=== PATIENT | male | born 1980 | race Caucasian/White ===

== ENCOUNTER 2019-06-22 17:19 | Emergency (ER) | payer MEDICAID, SELFPAY ==
[2019-06-22 17:20] VITALS: BP 165/72; PULSE 80; RESP 16; TEMP 36.6; O2SAT 100; BMI 22.9
--- NOTE | 2019-06-22 17:39 | ED.VIS.DENTA ---
History of Present Illness Chief Complaint: Dental Informant: Patient Onset: Yesterday Context: Sudden Onset Timing: Continuous Quality: ache Location: left mandibular tooth Current Severity: Mild Maximum Severity: Mild Worsened by: Eating Relieved by: - - Nothing but has not tried any medications Associated Symptoms: Jaw Swelling, - - No fevers. No systemic symptoms. Narrative: Was eating hard pizza crust when 1 of his teeth crumbled/broke yesterday. This morning he has some swelling and feels it may be getting infected. - Past Medical History (1) Controlled type 1 diabetes mellitus with microalbuminuria, with long-term current use of insulin Status: Chronic Comment: Continues to do well. . No issues currently. No statin use. On lisinopril Past Medical History - Allergies and Home Meds Allergies/Adverse Reactions: Allergies cephalexin monohydrate [From Keflex] Allergy (Verified 04/12/18 08:25) Hives Primary Care Physician: Luis San MD [Primary Care Provider] - Lives: Alone Smoking Status: Current every day smoker Review of Systems General: Denies: Chills, Fever, Sweats Eyes: Denies: Visual changes - bilaterally, Diplopia ENT: Reports: - - Dental pain. Jaw swelling.. Denies: Bilateral ear pain Respiratory: Denies: Dyspnea, Cough Skin: Denies: Rash, Wounds Neurological: Denies: Headache, Weakness, Numbness Physical Exam Vital Signs/Narrative: Vital Signs Temp Pulse Resp BP Pulse Ox 06/22/19 17:20 98 F 80 16 165/72 H 100 Inital Vital Signs reviewed: Yes General: Well nourished, Well developed, - - Well-appearing, no acute distress Head: Normocephalic, Atraumatic ENT: Moist mucous membranes, No rhinorrhea, TM's clear Mouth/Throat: No focal abscess, No sublingual edema, Dentral fracture - Due to decay, tooth number 19; anterior portion of tooth is missing, pulp exposed. No bleeding., Focal dental decay, Focal gum swelling - Mild at base of affected tooth. Tender. No abscess.. Negative for: Gingivitis - No gingival bleeding Neck: Supple, No lymphadenopathy, - - No abscess visible or palpable Cardiovascular: Regular rate, Regular rhythm, No murmurs Respiratory: No distress, CTA bilaterally, Chest nontender Skin: Normal color, No rash, No Trauma Neurological: Alert, Oriented x3, Cranial nerves II-XII grossly intact, Normal Strength, Normal Sensation, Normal Gait Psychological: Normal affect, Normal Mood Diagnostic/Tx/Re-eval - Medical Decision Making Dental Procedures: Cavet temporary sealant placed Patient admittedly not requiring prescription analgesics. He is given a prescription for NSAIDs however, as well as amoxicillin. Declares allergy to Keflex and states he can take amoxicillin without reaction. Given dental resource list. ED Disposition - Plan for ED Patient: Disposition: Home or Assisted Living Diagnosis: Dental decay, Infected dental caries Instructions: Dental Cavity Prescriptions: Amoxicillin 875 mg PO BID #20 tab Transmission Status: Pending to [id number] Naproxen [Naprosyn] 500 mg PO BID PRN PRN #20 tab PRN Reason: pain Transmission Status: Pending to [id number] Referrals: Luis San MD [Primary Care Provider] - Dentist,Your [STAFF PHYSICIAN] -
== END 2019-06-22 18:06 | disposition home or self-care (01) ==
LOC: ED 18:00
PROVIDERS: Emergency Provider Emergency Medicine; Family Provider Family Medicine; PCP Family Medicine
DX: K04.7 Periapical abscess without sinus (principal); K02.9 Dental caries, unspecified; E10.29 Type 1 diabetes mellitus with other diabetic kidney complication; Z79.4 Long term (current) use of insulin; F17.200 Nicotine dependence, unspecified, uncomplicated
CPT/HCPCS: 99282

== ENCOUNTER 2021-08-06 08:59 | Outpatient (CLI) | payer MEDICAID, SELFPAY ==
[2021-08-06 12:29] LABS: Vitamin D,25 Hydroxy 12.2 ng/mL
[2021-08-06 12:48] LABS: ALB/GLOB Ratio 1.2 RATIO (0.9-2.4); AST(SGOT) 25 U/L (15-37); Alanine Aminotransfer ALT/SGPT 40 U/L (16-61); Albumin, Serum 3.8 g/dL (3.2-5.0); Alkaline Phosphatase 106 U/L (45-117); Anion Gap 7 (5-15); BUN 17 mg/dL (7-18); BUN/Creat Ratio 16.2 RATIO (10-20); Chloride 104 mmol/L (98-107); Cholesterol 119 mg/dL (200); Creatinine, Serum 1.05 mg/dL (0.70-1.30); EST Glomerular Filtration Rate 82 mL/min (>60); Est Glom Filt Rate - Afr Amer 100 mL/min (>60); Globulin 3.3 g/dL (2.2-4.2); Glucose 105 mg/dL (74-106); High Density Lipoprotein 49 mg/dL; Potassium 4.3 mmol/L (3.5-5.1); Protein, Total 7.1 g/dL (6.4-8.2); Sodium Level 139 mmol/L (136-145); Thyroid Stim Hormone (TSH) 0.86 uIU/mL (0.358-3.74); Triglycerides 108 mg/dL; Very Low Density Lipoprotein 22 mg/dL (5-40)
[2021-08-06 16:12] LABS: Microalbumin:Creatinine Ratio 495.3 mg/g CRE (<30 mg/g CRE)
== END 2021-08-06 23:59 | disposition home or self-care (01) ==
LOC: BIMLAB 09:00
PROVIDERS: PCP Family Medicine; Referring Provider Internal Medicine Endocrinology, Diabetes & Metabolism; Visit Provider Internal Medicine Endocrinology, Diabetes & Metabolism
DX: E10.29 Type 1 diabetes mellitus with other diabetic kidney complication (principal); R80.9 Proteinuria, unspecified; Z96.41 Presence of insulin pump (external) (internal); E55.9 Vitamin D deficiency, unspecified
CPT/HCPCS: 36415; 80053; 80061; 82043; 82306; 82570; 84443

== ENCOUNTER → 2022-03-20 | Outpatient (CLI) | payer MEDICAID, SELFPAY ==
[2022-03-20 10:40] LABS: Vitamin D,25 Hydroxy 68.3 ng/mL
[2022-03-20 10:41] LABS: ALB/GLOB Ratio 1.2 RATIO (0.9-2.4); AST(SGOT) 33 U/L (15-37); Alanine Aminotransfer ALT/SGPT 48 U/L (16-61); Albumin, Serum 3.7 g/dL (3.2-5.0); Alkaline Phosphatase 101 U/L (45-117); Anion Gap 6 (5-15); BUN 27 mg/dL (7-18); BUN/Creat Ratio 20.3 RATIO (10-20); Chloride 106 mmol/L (98-107); Creatinine, Serum 1.33 mg/dL (0.70-1.30); EST Glomerular Filtration Rate 62 mL/min (>60); Est Glom Filt Rate - Afr Amer 76 mL/min (>60); Glucose 138 mg/dL (74-106); Protein, Total 6.7 g/dL (6.4-8.2); Sodium Level 141 mmol/L (136-145)
== END | disposition home or self-care (01) ==
LOC: LAB 09:42
PROVIDERS: PCP Family Medicine; Referring Provider Internal Medicine Endocrinology, Diabetes & Metabolism; Visit Provider Internal Medicine Endocrinology, Diabetes & Metabolism
DX: E10.29 Type 1 diabetes mellitus with other diabetic kidney complication (principal); R80.9 Proteinuria, unspecified; E55.9 Vitamin D deficiency, unspecified
CPT/HCPCS: 36415; 80053; 82306